=== PATIENT | female | born 1980 | race Caucasian/White ===

== ENCOUNTER 2022-08-13 14:43 | Inpatient (IN) ==
--- NOTE | 2022-08-13 15:06 | Emergency Department Note ---
Impression & Plan Suicide attempt, Suicidal ideation ED Provider Note NAME: MERVIN MORA AGE: 42 SEX: F : 1980 ARRIVES VIA: Walk-In INFORMANT: Patient ED PROVIDER(S): Rodo Lim DO CHIEF COMPLAINT: SI HPI: Patient is a 42-year-old female with past medical history of bipolar that has been off her medications for several weeks. She presents to the ER with a suicide attempt as she tried to cut herself/wrist to kill herself. She denies any auditory or visual hallucinations. She has been eating and drinking. She feels very depressed as she has been unable to see her children since this past October. No belly pain, nausea, vomiting, or diarrhea. No dysuria, urgency, or frequency. No other exacerbating or remitting factors. ROS: See above HPI for pertinent positives & negatives. A total of 10 systems reviewed and were otherwise negative. PAST MEDICAL HISTORY:See Below PAST SURGICAL HISTORY:See Below FAMILY HISTORY:See Below SOCIAL HISTORY:See Below HOME MEDICATIONS:See Below ALLERGIES:See Below VITALS:See Below PHYSICAL EXAMINATION: GENERAL: Sitting up in bed, alert, well appearing, well nourished, no distress, non-toxic EYE EXAM: normal conjunctiva. PERRL and EOM's grossly intact. OROPHARYNX: no exudate, no erythema, lips, buccal mucosa, and tongue normal and mucous membranes are moist NECK: non-tender LUNGS: Clear to auscultation. Normal chest wall mechanics HEART: no murmurs, S1 normal and S2 normal ABDOMEN: abdomen soft, non-tender, normo-active bowel sounds, no masses, no rebound or guarding. UPPER EXTREMITIES: upper extremities are grossly normal. LOWER EXTREMITIES: No pitting edema. NEURO EXAM: Normal sensorium, cranial nerves II-XII grossly intact, normal speech, no gross weakness of arms, no gross weakness of legs. MEDICAL DECISION MAKING: Patient is a 42-year-old female who presents the ER for suicide attempt with cutting her wrist. She has superficial lacerations. She notes that she did and does want to kill her self. Blood work was obtained and showed no significant leukocytosis or anemia. BMP was unremarkable with exception of slightly elevated glucose at 102. LFTs bilirubin was unremarkable. TSH was normal. UA was unremarkable. was negative. Tox was positive for marijuana. Alcohol was negative. COVID was negative. Patient is medically stable. She was signed out Dr. Pederson awaiting placement as she will need inpatient treatment. Patient was given some Ativan as she got anxious as there is a patient next-door that was yelling. Start Time: 1545 Reason: Patient with no pertinent past medical history underwent ED Observation for psychiatric placement and evaluation. Fam Hx: No pertinent family history SocHx: See Below Assessment(s): As described above Summary: As described above Disposition: 08/13/2020 at 1920. Total Time: 4.5hrs Triage Nursing notes reviewed. Limited review of prior medical records performed Vital Signs: reviewed and remarkable for HTN Differential diagnosis: Mood disorder, infection, hypoglycemia, electrolyte abnormalities, cardiac sourc es, intracerebral event, toxicologic, trauma, neurologic, as well as other pathologies. ER treatment provided: See below Diagnostics interpreted by me: ECG: none Laboratory studies: As stated above and show below. Imaging studies: See below Consultation(s): none Procedures: none Critical Care: None Past Med/Surg History Medical History (Updated 08/13/22 @ 19:13 by Rodo Lmi DO) No pertinent family history No pertinent past medical history Surgical History (Updated 07/17/22 @ 01:21 by Josemanuel Amaro) No pertinent past surgical history Social History (Updated 07/17/22 @ 01:21 by Josemanuel Amaro) Smoking Status: Current every day smoker Tobacco Type: E-cigarettes / Vaping Hx Alcohol Use: Yes Hx Substance Use: Yes Prescribed Medications: Opiates Preferred Language: Persian Feels Safe at Home: Yes Home Meds Previous Rx's Medication Instructions Recorded gabapentin 800 mg tablet 800 mg PO TID #30 tabs 07/16/22 Results & Data (ED) Vital Signs Vital Signs - 24 hr 08/13/22 14:46 08/13/22 14:43 Temperature 36.8 C Temperature Source Temporal Artery Scan Pulse Rate 100 H Respiratory Rate 18 16 Respiratory Effort / Characteristics Non-Labored Non-Labored Respiratory Depth Normal Normal Respiratory Pattern Regular Blood Pressure 157/102 H Blood Pressure Mean 120 Pulse Oximetry 99 Oxygen Delivery Method Room Air Sepsis Recent Fever Within 48 Hours No Sepsis New/Unexplained Change in Mental Status No Sepsis Action Taken by Nursing No Action Required Laboratory Data Result diagrams: 08/13/22 15:52 08/13/22 15:52 Lab Results 08/13/22 08/13/2222 Range/Units 15:20 15:20 15:20 WBC (4.8-10.8) K/ul RBC (3.93-5.22) M/uL Hgb (12.0-16.0) g/dl Hct (34.1-44.9) % MCV (80.0-100.0) fL MCH (25.0-34.0) pg MCHC (32.0-36.0) g/dL RDW Std Deviation (36.4-46.3) fL RDW Coeff of Suzi (11.5-14.5) % Plt Count (130-400) K/uL MPV (9.4-12.3) fL Immature Gran % (Auto) % Neut % (Auto) % Lymph % (Auto) % [place] % (Auto) % Eos % (Auto) % Baso % (Auto) % Neut # (Auto) (1.4-6.5) K/uL Lymph # (Auto) (1.2-3.4) K/uL [place] # (Auto) (0.24-0.82) K/uL Eos # (Auto) (0-0.50) K/uL Baso # (Auto) (0-0.2) K/uL Immature Gran # (Auto) (0.00-0.02) K/uL Sodium (136-145) mmol/L Potassium (3.5-5.1) mmol/L Chloride (98-107) mmol/L Carbon Dioxide (21-32) mmol/L Anion Gap (3-11) BUN (6-23) mg/dl Creatinine (0.6-1.2) mg/dl Est Cr Clr Drug Dosing ml/min Est GFR ( Amer) ml/min Est GFR (Non-Af Amer) ml/min BUN/Creatinine Ratio (10-20) Glucose (70-99(Fasting)) mg/dl Calcium (8.5-10.1) mg/dl Total Bilirubin (0.2-1.0) mg/dl AST (13-39) U/L ALT (7-52) U/L Alkaline Phosphatase (34-104) U/L Total Protein (6.0-8.3) gm/dl Albumin (3.4-5.0) gm/dl Globulin (2.5-4.0) gm/dl Albumin/Globulin Ratio (0.9-2) TSH (0.300-4.500) uIu/ml Urine Color Yellow Urine Appearance Clear (Clear) Urine pH 7.0 (4.5-7.5) Ur Specific [place] 1.015 (1.000-1.030) Urine Protein Negative (Negative) Urine Glucose (UA) Negative (Negative) Urine Ketones Negative (Negative) Urine Blood Negative (Negative) Urine Nitrite Negative (Negative) Urine Bilirubin Negative (Negative) Urine Urobilinogen Negative (Negative) Ur Leukocyte Esterase Negative (Negative) Urine Test (Negative) Salicylates (3.0-30) mg/dl Urine Opiates Screen Neg (Neg) Ur Methadone, Qual Neg (Neg) Acetaminophen (10-30) ug/ml Urine Barbiturates Neg (Neg) Ur Phencyclidine (PCP) Neg (Neg) U Amphetamin/Meth Scrn Neg (Neg) MDMA (Ecstasy) Screen Neg (Neg) U Benzodiazepines Scrn Neg (Neg) Ur Cocaine Metabolite Neg (Neg) U Marijuana (THC) Screen Pos H (Neg) Ethyl Alcohol mg/dL (<10.0) mg/dl SARS-CoV-2, RNA, NAAT NEGATIVE (NEGATIVE) 08/13/22 08/13/22 08/13/22 Range/Units 15:20 15:52 15:52 WBC 8.47 (4.8-10.8) K/ul RBC 4.92 (3.93-5.22) M/uL Hgb 14.4 (12.0-16.0) g/dl Hct 42.0 (34.1-44.9) % MCV 85.4 (80.0-100.0) fL MCH 29.3 (25.0-34.0) pg MCHC 34.3 (32.0-36.0) g/dL RDW Std Deviation 38.6 (36.4-46.3) fL RDW Coeff of Suzi 12.6 (11.5-14.5) % Plt Count 260 (130-400) K/uL MPV 9.1 L (9.4-12.3) fL Immature Gran % (Auto) 1.4 % Neut % (Auto) 65.9 % Lymph % (Auto) 18.1 % [place] % (Auto) 12.0 % Eos % (Auto) 2.0 % Baso % (Auto) 0.6 % Neut # (Auto) 5.58 (1.4-6.5) K/uL Lymph # (Auto) 1.53 (1.2-3.4) K/uL [place] # (Auto) 1.02 H (0.24-0.82) K/uL Eos # (Auto) 0.17 (0-0.50) K/uL Baso # (Auto) 0.05 (0-0.2) K/uL Immature Gran # (Auto) 0.12 H (0.00-0.02) K/uL Sodium 137 (136-145) mmol/L Potassium 3.7 (3.5-5.1) mmol/L Chloride 105 (98-107) mmol/L Carbon Dioxide 26 (21-32) mmol/L Anion Gap 6 (3-11) BUN 14 (6-23) mg/dl Creatinine 0.67 (0.6-1.2) mg/dl Est Cr Clr Drug Dosing 128.7 ml/min Est GFR ( Amer) 126.5 ml/min Est GFR (Non-Af Amer) 109.2 ml/min BUN/Creatinine Ratio 20.9 H (10-20) Glucose 120 H (70-99(Fasting)) mg/dl Calcium 9.3 (8.5-10.1) mg/dl Total Bilirubin 0.4 (0.2-1.0) mg/dl AST 13 (13-39) U/L ALT 19 (7-52) U/L Alkaline Phosphatase 82 (34-104) U/L Total Protein 6.9 (6.0-8.3) gm/dl Albumin 3.9 (3.4-5.0) gm/dl Globulin 3.0 (2.5-4.0) gm/dl Albumin/Globulin Ratio 1.3 (0.9-2) TSH (0.300-4.500) uIu/ml Urine Color Urine Appearance (Clear) Urine pH (4.5-7.5) Ur Specific [place] (1.000-1.030) Urine Protein (Negative) Urine Glucose (UA) (Negative) Urine Ketones (Negative) Urine Blood (Negative) Urine Nitrite (Negative) Urine Bilirubin (Negative) Urine Urobilinogen (Negative) Ur Leukocyte Esterase (Negative) Urine Test Negative (Negative) Salicylates (3.0-30) mg/dl Urine Opiates Screen (Neg) Ur Methadone, Qual (Neg) Acetaminophen (10-30) ug/ml Urine Barbiturates (Neg) Ur Phencyclidine (PCP) (Neg) U Amphetamin/Meth Scrn (Neg) MDMA (Ecstasy) Screen (Neg) U Benzodiazepines Scrn (Neg) Ur Cocaine Metabolite (Neg) U Marijuana (THC) Screen (Neg) Ethyl Alcohol mg/dL (<10.0) mg/dl SARS-CoV-2, RNA, NAAT (NEGATIVE) 08/13/22 08/13/22 08/13/22 Range/Units 15:52 15:52 15:52 WBC (4.8-10.8) K/ul RBC (3.93-5.22) M/uL Hgb (12.0-16.0) g/dl Hct (34.1-44.9) % MCV (80.0-100.0) fL MCH (25.0-34.0) pg MCHC (32.0-36.0) g/dL RDW Std Deviation (36.4-46.3) fL RDW Coeff of Suzi (11.5-14.5) % Plt Count (130-400) K/uL MPV (9.4-12.3) fL Immature Gran % (Auto) % Neut % (Auto) % Lymph % (Auto) % [place] % (Auto) % Eos % (Auto) % Baso % (Auto) % Neut # (Auto) (1.4-6.5) K/uL Lymph # (Auto) (1.2-3.4) K/uL [place] # (Auto) (0.24-0.82) K/uL Eos # (Auto) (0-0.50) K/uL Baso # (Auto) (0-0.2) K/uL Immature Gran # (Auto) (0.00-0.02) K/uL Sodium (136-145) mmol/L Potassium (3.5-5.1) mmol/L Chloride (98-107) mmol/L Carbon Dioxide (21-32) mmol/L Anion Gap (3-11) BUN (6-23) mg/dl Creatinine (0.6-1.2) mg/dl Est Cr Clr Drug Dosing ml/min Est GFR ( Amer) ml/min Est GFR (Non-Af Amer) ml/min BUN/Creatinine Ratio (10-20) Glucose (70-99(Fasting)) mg/dl Calcium (8.5-10.1) mg/dl Total Bilirubin (0.2-1.0) mg/dl AST (13-39) U/L ALT (7-52) U/L Alkaline Phosphatase (34-104) U/L Total Protein (6.0-8.3) gm/dl Albumin (3.4-5.0) gm/dl Globulin (2.5-4.0) gm/dl Albumin/Globulin Ratio (0.9-2) TSH 2.895 (0.300-4.500) uIu/ml Urine Color Urine Appearance (Clear) Urine pH (4.5-7.5) Ur Specific [place] (1.000-1.030) Urine Protein (Negative) Urine Glucose (UA) (Negative) Urine Ketones (Negative) Urine Blood (Negative) Urine Nitrite (Negative) Urine Bilirubin (Negative) Urine Urobilinogen (Negative) Ur Leukocyte Esterase (Negative) Urine Test (Negative) Salicylates < 3.0 L (3.0-30) mg/dl Urine Opiates Screen (Neg) Ur Methadone, Qual (Neg) Acetaminophen < 3 L (10-30) ug/ml Urine Barbiturates (Neg) Ur Phencyclidine (PCP) (Neg) U Amphetamin/Meth Scrn (Neg) MDMA (Ecstasy) Screen (Neg) U Benzodiazepines Scrn (Neg) Ur Cocaine Metabolite (Neg) U Marijuana (THC) Screen (Neg) Ethyl Alcohol mg/dL < 10.0 (<10.0) mg/dl SARS-CoV-2, RNA, NAAT (NEGATIVE) Administered Medications Discontinued Medications Lorazepam (Lorazepam 1 Mg Tab) 1 mg SL NOW STA Stop: 08/13/22 18:10 Last Admin: 08/13/22 18:22 Dose: 1 mg Documented By: SR Discharge Plan Visit Data Chief Complaint: Mental Health Evaluation Stated Complaint: ILLNESS ED Provider: Rodo Lim Discharge Problem: Suicide attempt, Suicidal ideation Forms Stand Alone Forms: [facility], Suicide Prevention Resources Referrals Referrals: PCP,NO [Primary Care Provider] -
[2022-08-13 15:46] LABS: Appearance Urine Clear (Clear); Bilirubin Urine Negative (Negative); Blood Urine Negative (Negative); Color Urine Yellow; Glucose Urine UA Negative (Negative); Ketones Urine Negative (Negative); Leukocyte Esterase Urine Negative (Negative); Nitrite Urine Negative (Negative); Protein Urine Negative (Negative); Specific Gravity Urine 1.015 (1.000-1.030); Urobilinogen Urine Negative (Negative)
[2022-08-13 15:52] LABS: Pregnancy Test, Urine Negative (Negative)
[2022-08-13 16:11] LABS: Amphetamines+Metham, Urine Neg (Neg); Barbiturates, Urine Neg (Neg); Benzodiazepine, Urine Neg (Neg); Cocaine, Urine Neg (Neg); MDMA (Ecstacy), Urine Neg (Neg); Methadone, Urine Neg (Neg); Opiate, Urine Neg (Neg); Phencyclidine, Urine Neg (Neg)
[2022-08-13 16:15] LABS: Basophils # (auto) 0.05 K/uL (0-0.2); Basophils % (auto) 0.6 %; Eosinophils # (auto) 0.17 K/uL (0-0.50); Hemoglobin 14.4 g/dl (12.0-16.0); Immature Granulocytes # (auto) 0.12 K/uL (0.00-0.02); Immature Granulocytes % (auto) 1.4 %; Lymphocytes # (auto) 1.53 K/uL (1.2-3.4); Lymphocytes % (auto) 18.1 %; Mean Corpuscular Hemoglobin 29.3 pg (25.0-34.0); Mean Corpuscular Hgb Conc 34.3 g/dL (32.0-36.0); Mean Corpuscular Volume 85.4 fL (80.0-100.0); Mean Platelet Volume 9.1 fL (9.4-12.3); Monocytes # (auto) 1.02 K/uL (0.24-0.82); Neutrophils # (auto) 5.58 K/uL (1.4-6.5); Neutrophils % (auto) 65.9 %; Platelet Count 260 K/uL (130-400); RDW Coefficient of Variation 12.6 % (11.5-14.5); RDW Standard Deviation 38.6 fL (36.4-46.3); Red Blood Count 4.92 M/uL (3.93-5.22); White Blood Count 8.47 K/ul (4.8-10.8)
[2022-08-13 16:33] LABS: Albumin Globulin Ratio 1.3 (0.9-2); Albumin Level 3.9 gm/dl (3.4-5.0); BUN Creatinine Ratio 20.9 (10-20); Bilirubin,Total 0.4 mg/dl (0.2-1.0); Calcium 9.3 mg/dl (8.5-10.1); Creatinine Clr Calc Pharmacy 128.7 ml/min; Est GFR (African American) 126.5 ml/min; Est GFR (Non-African American) 109.2 ml/min; Potassium 3.7 mmol/L (3.5-5.1); Total Protein 6.9 gm/dl (6.0-8.3)
[2022-08-13 16:37] LABS: Acetaminophen < 3 ug/ml (10-30); Salicylate < 3.0 mg/dl (3.0-30)
[2022-08-13] MEDS ORDERED: LORazepam 1 MG TAB SL STA ×2 (18:09→19:18)
[2022-08-13] MEDS ORDERED: DIPHTHERIA/TETANUS/PERTUSSIS 0.5 ML SYR/VIAL IM ONE (19:13)
[2022-08-13] MEDS ORDERED: cloNIDine HCL 0.1 MG TAB PO ONE (20:28)
[2022-08-13] MEDS ORDERED: SODIUM CHLORIDE 0.65% NA SOLN 45 ML (OCEAN) PRN (20:29)
[2022-08-13] MEDS ORDERED: BISMUTH SUBSALICYLATE LIQD 236 ML PO PRN (20:29)
[2022-08-13] MEDS ORDERED: MAGNESIUM HYDROXIDE SUSP 30 ML UDC PO PRN (20:29)
[2022-08-13] MEDS ORDERED: hydrOXYzine HCl 25 MG TAB PO PRN (20:29)
[2022-08-13] MEDS ORDERED: ALUMINUM/MAGNESIUM SUSP 30 ML UDC PO PRN (20:29)
--- NOTE | 2022-08-13 20:31 | Emergency Department Note ---
ED Visit Note The patient was taken in signout from Dr. Lim at change of shift. Please see his note for details of the patient's initial presentation. In brief the patient is a 42-year-old woman presents to the emergency department for evaluation of suicidal ideation with suicide attempt by cutting, which did not require repair with feelings of wanting to kill herself. She is interested in voluntary admission under a 201. The patient was medically cleared and referral was made to [facility] and was accepted. She was given 0.1 mg of clonidine for blood pressure per [facility] request. .
[2022-08-13] MEDS: hydrOXYzine HCl 25 MG TAB PO PRN (21:56)
[2022-08-14] MEDS: ACETAMINOPHEN 325 MG TAB PO PRN ×2 (13:26→13:35)
--- NOTE | 2022-08-14 14:23 | History & Physical ---
Date of Service August 14, 2022 Impression / Recommendations Impression 42 yo female with a history of bipolar disorder--erratic behavior on/off substances and recurrent self harm. Aspects of her history allude to family conflicts and more significant substance abuse that endorsing on initial exam but does seem motivated toward sobriety. Presentation could also be consistent with borderline personality disorder. (1) Bipolar disorder: (2) Polysubstance abuse: Plan The patient was admitted to the [facility] ([facility]) on q15 min checks (behavioral with suicide precautions) for safety. The patient will participate in group, recreational, and milieu therapies and will be offered additional individual and family sessions as clinically appropriate. The patient's recent substance use suggests suggests problematic drinking and other dependence. Brief intervention was offered and accepted. Intervention was greater than 5 min in length and included assessing readiness to quit, recommendation to abstain, and to set a specific goal for aftercare. clothing worker will also assist in anticipating barriers to sobriety and in problem- solving for solutions to those problems while confirming follow up at [facility]. The patient is in action stage with regards to transtheoretical model of change. The patient is advised to decrease consumption due to depressant effects and risk of interaction with prescription medications. Risks/benefits/alternatives reviewed re: Lamictal for mood stabilization. Discussion included but was not limited to slow titration to decrease risks of Albert's Kwabena syndrome. Patient agrees to hold med/notify current prescriber of rash immediately. Will start Lamictal 25 mg daily. She prefers over retrial of lithium or resuming and atypical. She is also requesting retrial of trazodone for sleep and states "I would never OD on that stuff again." Buspar 10 mg TID for anxiety as I do feel that SSRI restart would likely be activating as she presents as mixed depression-hypomania. Inventory Assets Strengths: recovery focussed, help seeking Needs: improve coping skills, abstain from ETOH and other substances. Suicide Risk Level Suicide Risk Level: Moderate (q15 min suicide checks) Risk Factors Assessment : Yes Do You Have Access To A Gun?: No Mental Health Diagnoses: Yes Substance Use Disorders: Yes Previous Attempt: Yes Family History of Suicide: Yes (ATTEMPTS IN FATHER) Previous Psychiatric Hospitalization: Yes Protective Factors Assessment Responsible for Young Children: No (but she wants to reinitiate contact) Employed: No Stable Relationships: Yes Supportive Family: No Psychiatric History Identifying Data MERVIN MORA is a 42-year-old F who currently lives in [place], has a history of bipolar disorder and prior suicide attempts, and was admitted on 08/13/22 20:29 on a 201 voluntary commitment for SI with recent SIB. Chief Complaint "I haven't been stable, I need to get back on my meds." History of Present Illness The patient states she was diagnosed with bipolar disorder at the age of 20 after an OD of trazodone in college (in [place] at the time) and has primarily suffered from depression and self-injurious behavior (cutting) but also over spending and periods of poor impulse control and increase in substance abuse. She minimizes any recent use "other than MJ" this month but reports testing positive because she vaped Delta 8 the day prior to admission and drank a fifth of vodka last week. She related variable mood, irritability, suicidal ideation, and superficial cuts to her forearms essentially since leaving the [facility] and then her stepdown program at rehab ([facility]). She has been admittedly non- compliant with her medications (Zoloft, Seroquel--doses are not in surescripts) since leaving the [facility] 07/02/22. She met her current boyfriend while he was also a patient there and she moved in with him and got engaged last week. Her car and most personal items are in the [place] area as she had been staying with family for support over past year since moving from [place]. She previously resided there with her now ex- who has since relocated to [place] with their 2 children (under 12 yo). She has not seen them since Oct 2021 and "I can't talk to them until I stay clean." The patient states that prior to the [facility] stay she was drinking 1 magnum of wine a day and misusing prescription pills (opiates, benzos). She denies current cravings and is "only interested in outpatient." She stated that her current living environment is supportive of sobriety. She was easily tearful and had difficulty giving clear timeline of specific symptoms but hasn't been sleeping well and is "definitely anxious." She did receive a few doses of Ativan in the ED. Past Psychiatric History Current Psychiatric Diagnosis: Bipolar Outpatient Services: [facility] scheduled Previous Psych Admissions: multiple--starting age 20, numerous during 12 years in [place], most recent 06/2020 Do You Have Access To A Gun?: No History of Previous Suicide Attempt: Yes Describe Attempts in the Past: OD, cutting Past Medication Trials: she has taken trazodone with benefit, lithium, "probably a bunch others", lamictal, buspar (helpful), Seroquel (non compliant), Zoloft (non compliant) Allergies Allergy/AdvReac Type Severity Reaction Status Date / Time sulfamethoxazole Allergy Swelling Verified 08/13/22 21:08 [From Bactrim] of the Eye trimethoprim [From Bactrim] Allergy Swelling Verified 08/13/22 21:08 of the Eye Home Medications Medication Instructions Recorded Confirmed Type No Known Home Medications 08/13/22 08/13/22 History Family History Family Mental Health History Comment: Father- Suicide Attempts, Mother- Depression Alcohol History Hx of Alcohol Use Over the Past 12 Months: Yes AUDIT Total Score: 13 Smoking Use Have You Smoked or Used Tobacco Products in the Last 30 Days: Yes tobacco type: e-cigarettes Smoking Status: Current every day smoker Smoking packs per day: 0 Substance History Hx of Prescription Med Misuse Over the Past 12 Months: No Hx of Over the Counter Med Misuse Over the Past 12 Months: No Hx of Inhalent Misuse Over the Past 12 Months: Yes Hx of Organic Substance Use Over the Past 12 Months: No Hx of Illegal Substances/Street Drug Use Over Past 12 Months: No Problems as a Result of Past Substance Use: Job Loss and Loss of Family Support Problems as a Result of Past Substance Use Comments: loss of job related to alcohol abuse Personal History Living Arrangements: Home Living Arrangements Comments: [place]. Highest Grade Completed: College Highest Grade Completed Comment: BS in Psychology from [employer] Marital Status: Living w/ Signif. Other Number Of Children: 2 Beliefs That Will Affect Care: None Legal Problems Comment: 2000 charged with simple assault, may be off of record Hx Traumatic Life Events: Yes (separation from children, "jumping into relationships") Patient History Medical History No pertinent family history No pertinent past medical history Surgical History No pertinent past surgical history Social History (Updated 07/17/22 @ 01:21 by Josemanuel Amaro) Smoking Status: Current every day smoker Tobacco Type: E-cigarettes / Vaping Hx Alcohol Use: Yes Hx Substance Use: Yes Prescribed Medications: Opiates Preferred Language: Czech Communication Ability: Effective Boring Machine Operator Vertical Required: No Beliefs That Will Affect Care: None Feels Safe at Home: Yes Assistive Devices: None Review of Systems Review of Systems: All systems reviewed & are unremarkable except as noted in HPI & below Physical Exam Psychiatric: Orientation: alert and oriented x 3 Apperance: appropriately dressed and appropriately groomed Eye Contact: good eye contact Motor Behavior: no abnormal motor movements Speech: + abnormal rate/rhythm/volume of speech (hyperverbal) Affect: + depressed affect Mood: + depressed mood and + anxious mood Thought Process: + circumstantial thought process Thought Content: reality based without delusions Suicidal Thoughts: denies suicidal plan and denies suicidal intent; + reports suicidal thoughts Homicidal Thoughts: denies homicidal thoughts Hallucinations: no auditory hallucinations and no visual hallucinations Cognition: language grossly intact; + attention not intact Estimated Intelligence: consistent with education level Insight: + limited insight Judgement: + limited judgement Vital Signs (Past 24 Hours): Last Vital Signs Temp 36.9 C 08/14/22 06:39 Pulse 111 H 08/14/22 06:41 Resp 16 08/14/22 06:39 BP 125/88 08/14/22 06:41 Pulse Ox 99 08/13/22 14:46 O2 Del Method 08/13/22 21:12 Exam Statement: A physical exam was performed in the ED by Dr. Lim for the purposes of medical clearance. I accept that physical as correct and adequate for the purposes of the inpatient physical exam. Results & Data ([facility]) Laboratory Results Laboratory Results - last 24 hr 08/13/22 08/13/22 08/13/22 15:20 15:20 15:20 WBC RBC Hgb Hct MCV MCH MCHC RDW Std Deviation RDW Coeff of Suzi Plt Count MPV Immature Gran % (Auto) Neut % (Auto) Lymph % (Auto) Martin % (Auto) Eos % (Auto) Baso % (Auto) Neut # (Auto) Lymph # (Auto) Martin # (Auto) Eos # (Auto) Baso # (Auto) Immature Gran # (Auto) Sodium Potassium Chloride Carbon Dioxide Anion Gap BUN Creatinine Est Cr Clr Drug Dosing Est GFR ( Amer) Est GFR (Non-Af Amer) BUN/Creatinine Ratio Glucose Calcium Total Bilirubin AST ALT Alkaline Phosphatase Total Protein Albumin Globulin Albumin/Globulin Ratio TSH Urine Color Yellow Urine Appearance Clear Urine pH 7.0 Ur Specific [place] 1.015 Urine Protein Negative Urine Glucose (UA) Negative Urine Ketones Negative Urine Blood Negative Urine Nitrite Negative Urine Bilirubin Negative Urine Urobilinogen Negative Ur Leukocyte Esterase Negative Urine Test Salicylates Urine Opiates Screen Neg Ur Methadone, Qual Neg Acetaminophen Urine Barbiturates Neg Ur Phencyclidine (PCP) Neg U Amphetamin/Meth Scrn Neg MDMA (Ecstasy) Screen Neg U Benzodiazepines Scrn Neg Ur Cocaine Metabolite Neg U Marijuana (THC) Screen Pos H U Marijuana THC Carboxy Drug Screen Comment Ethyl Alcohol mg/dL SARS-CoV-2, RNA, NAAT NEGATIVE 08/13/22 08/13/22 08/13/22 15:20 15:20 15:52 WBC 8.47 RBC 4.92 Hgb 14.4 Hct 42.0 MCV 85.4 MCH 29.3 MCHC 34.3 RDW Std Deviation 38.6 RDW Coeff of Suzi 12.6 Plt Count 260 MPV 9.1 L Immature Gran % (Auto) 1.4 Neut % (Auto) 65.9 Lymph % (Auto) 18.1 Martin % (Auto) 12.0 Eos % (Auto) 2.0 Baso % (Auto) 0.6 Neut # (Auto) 5.58 Lymph # (Auto) 1.53 Martin # (Auto) 1.02 H Eos # (Auto) 0.17 Baso # (Auto) 0.05 Immature Gran # (Auto) 0.12 H Sodium Potassium Chloride Carbon Dioxide Anion Gap BUN Creatinine Est Cr Clr Drug Dosing Est GFR ( Amer) Est GFR (Non-Af Amer) BUN/Creatinine Ratio Glucose Calcium Total Bilirubin AST ALT Alkaline Phosphatase Total Protein Albumin Globulin Albumin/Globulin Ratio TSH Urine Color Urine Appearance Urine pH Ur Specific [place] Urine Protein Urine Glucose (UA) Urine Ketones Urine Blood Urine Nitrite Urine Bilirubin Urine Urobilinogen Ur Leukocyte Esterase Urine Test Negative Salicylates Urine Opiates Screen Ur Methadone, Qual Acetaminophen Urine Barbiturates Ur Phencyclidine (PCP) U Amphetamin/Meth Scrn MDMA (Ecstasy) Screen U Benzodiazepines Scrn Ur Cocaine Metabolite U Marijuana (THC) Screen U Marijuana THC Carboxy Pending Drug Screen Comment Pending Ethyl Alcohol mg/dL SARS-CoV-2, RNA, NAAT 08/13/22 08/13/22 08/13/22 15:52 15:52 15:52 WBC RBC Hgb Hct MCV MCH MCHC RDW Std Deviation RDW Coeff of Suzi Plt Count MPV Immature Gran % (Auto) Neut % (Auto) Lymph % (Auto) Martin % (Auto) Eos % (Auto) Baso % (Auto) Neut # (Auto) Lymph # (Auto) Martin # (Auto) Eos # (Auto) Baso # (Auto) Immature Gran # (Auto) Sodium 137 Potassium 3.7 Chloride 105 Carbon Dioxide 26 Anion Gap 6 BUN 14 Creatinine 0.67 Est Cr Clr Drug Dosing 128.7 Est GFR ( Amer) 126.5 Est GFR (Non-Af Amer) 109.2 BUN/Creatinine Ratio 20.9 H Glucose 120 H Calcium 9.3 Total Bilirubin 0.4 AST 13 ALT 19 Alkaline Phosphatase 82 Total Protein 6.9 Albumin 3.9 Globulin 3.0 Albumin/Globulin Ratio 1.3 TSH 2.895 Urine Color Urine Appearance Urine pH Ur Specific [place] Urine Protein Urine Glucose (UA) Urine Ketones Urine Blood Urine Nitrite Urine Bilirubin Urine Urobilinogen Ur Leukocyte Esterase Urine Test Salicylates < 3.0 L Urine Opiates Screen Ur Methadone, Qual Acetaminophen < 3 L Urine Barbiturates Ur Phencyclidine (PCP) U Amphetamin/Meth Scrn MDMA (Ecstasy) Screen U Benzodiazepines Scrn Ur Cocaine Metabolite U Marijuana (THC) Screen U Marijuana THC Carboxy Drug Screen Comment Ethyl Alcohol mg/dL SARS-CoV-2, RNA, NAAT 08/13/22 15:52 WBC RBC Hgb Hct MCV MCH MCHC RDW Std Deviation RDW Coeff of Suzi Plt Count MPV Immature Gran % (Auto) Neut % (Auto) Lymph % (Auto) Martin % (Auto) Eos % (Auto) Baso % (Auto) Neut # (Auto) Lymph # (Auto) Martin # (Auto) Eos # (Auto) Baso # (Auto) Immature Gran # (Auto) Sodium Potassium Chloride Carbon Dioxide Anion Gap BUN Creatinine Est Cr Clr Drug Dosing Est GFR ( Amer) Est GFR (Non-Af Amer) BUN/Creatinine Ratio Glucose Calcium Total Bilirubin AST ALT Alkaline Phosphatase Total Protein Albumin Globulin Albumin/Globulin Ratio TSH Urine Color Urine Appearance Urine pH Ur Specific [place] Urine Protein Urine Glucose (UA) Urine Ketones Urine Blood Urine Nitrite Urine Bilirubin Urine Urobilinogen Ur Leukocyte Esterase Urine Test Salicylates Urine Opiates Screen Ur Methadone, Qual Acetaminophen Urine Barbiturates Ur Phencyclidine (PCP) U Amphetamin/Meth Scrn MDMA (Ecstasy) Screen U Benzodiazepines Scrn Ur Cocaine Metabolite U Marijuana (THC) Screen U Marijuana THC Carboxy Drug Screen Comment Ethyl Alcohol mg/dL < 10.0 SARS-CoV-2, RNA, NAAT Current Inpatient Medications Current Inpatient Medications: Current Inpatient Medications Acetaminophen (Acetaminophen 325 Mg Tab) 650 mg PO Q4H PRN PRN Reason: Headache or Minor Fever Stop: 09/12/22 20:28 Last Admin: 08/14/22 13:26 Dose: 650 mg Al Hydrox/Mg Hydrox/Simethicone (Aluminum/Magnesium Susp 30 Ml Udc) 30 ml PO Q4H PRN PRN Reason: GI Upset Stop: 09/12/22 20:28 Bismuth Subsalicylate (Bismuth Subsalicylate Liqd 236 Ml) 15 ml PO PRN PRN PRN Reason: Loose Stool Stop: 09/12/22 20:28 Hydroxyzine HCl (Hydroxyzine Hcl 25 Mg Tab) 50 mg PO HSZ PRN PRN Reason: Insomnia Stop: 09/12/22 20:28 Last Admin: 08/13/22 21:56 Dose: 50 mg Hydroxyzine HCl (Hydroxyzine Hcl 25 Mg Tab) 25 mg PO Q4H PRN PRN Reason: Anxiety Stop: 09/12/22 20:28 Magnesium Hydroxide (Magnesium Hydroxide Susp 30 Ml Udc) 30 ml PO DAILY PRN PRN Reason: Constipation Stop: 09/12/22 20:28 Sodium Chloride (Sodium Chloride 0.65% Na Soln 45 Ml ([place])) 1 - 2 sprays NA PRN PRN PRN Reason: Nasal Dryness/Congestion Stop: 09/12/22 20:28
[2022-08-14] MEDS: busPIRone 5 MG TAB PO SCH ×2 (15:01→22:26)
[2022-08-14] MEDS: lamoTRIgine 25 MG TAB PO SCH (15:01)
[2022-08-14] MEDS ORDERED: DIPHTHERIA/TETANUS/PERTUSSIS 0.5 ML SYR/VIAL IM ONE (17:29)
[2022-08-14] MEDS: BACITRACIN OINT 15 GM TUBE EXT SCH (22:25)
[2022-08-14] MEDS: hydrOXYzine HCl 25 MG TAB PO PRN (22:36)
[2022-08-15] MEDS: BACITRACIN OINT 15 GM TUBE EXT SCH (08:29)
[2022-08-15] MEDS: busPIRone 5 MG TAB PO SCH ×2 (08:29→12:49)
[2022-08-15] MEDS: lamoTRIgine 25 MG TAB PO SCH (08:31)
[2022-08-15] MEDS: ACETAMINOPHEN 325 MG TAB PO PRN (08:31)
--- NOTE | 2022-08-15 12:33 | Discharge Summary ---
Date of Service August 15, 2022 History of Present Illness The patient states she was diagnosed with bipolar disorder at the age of 20 after an OD of trazodone in college (in [place] at the time) and has primarily suffered from depression and self-injurious behavior (cutting) but also over spending and periods of poor impulse control and increase in substance abuse. She minimizes any recent use "other than MJ" this month but reports testing positive because she vaped Delta 8 the day prior to admission and drank a fifth of vodka last week. She related variable mood, irritability, suicidal ideation, and superficial cuts to her forearms essentially since leaving the [facility] and then her stepdown program at rehab ([place]). She has been admittedly non- compliant with her medications (Zoloft, Seroquel--doses are not in surescripts) since leaving the [facility] 07/02/22. She met her current boyfriend while he was also a patient there and she moved in with him and got engaged last week. Her car and most personal items are in the [place] area as she had been staying with family for support over past year since moving from [place]. She previously resided there with her now ex- who has since relocated to [place] with their 2 children (under 12 yo). She has not seen them since Oct 2021 and "I can 't talk to them until I stay clean." The patient states that prior to the [facility] stay she was drinking 1 magnum of wine a day and misusing prescription pills (opiates, benzos). She denies current cravings and is "only interested in outpatient." She stated that her current living environment is supportive of sobriety. She was easily tearful and had difficulty giving clear timeline of specific sy mptoms but hasn't been sleeping well and is "definitely anxious." She did receive a few doses of Ativan in the ED. Physical Exam Psychiatric See admission H&P and DOD assessment. Vital Signs (Past 24 Hours) Last Vital Signs Temp 36.6 C 08/15/22 06:47 Pulse 94 H 08/15/22 06:47 Resp 16 08/15/22 06:47 BP 117/79 08/15/22 06:47 Pulse Ox 99 08/13/22 14:46 O2 Del Method 08/13/22 21:12 Principal Diagnosis bipolar disorder Psychiatric Data See daily stay summary. In short, safety was maintained and the patient was cooperative with care. Medication changes included retrial of Buspar and lamictal and they tolerated this well. A family session was held with her fiance and safety plan was completed prior to discharge. Day of Discharge Assessment Today the patient requests discharge having signed a 72 hr notice last night. They note improvement in mood and deny thoughts to harm self or others. Thoughts remain organized and they are improved from admission. There is no evidence of psychosis interfering with her medical decision making. They agree to take mediations as prescribed and keep follow-up appointments. Reviewed that BP/P have been intermittently elevated and again she minimizes any possibility of withdrawal. She views as a factor of anxiety and requests discharge. Reviewed that should f/u with primary care on an outpatient basis and she prefers to initiate that as relies on others for transportation/etc. They are stable for discharge to outpatient level of care. Transition of Care Transition Of Care Record: was reviewed with the patient Advance Directives Advance Directives Information Provided: Yes Advance Directives: No Mental Health Advance Directive: No Advance Directives on File: No Living Will: No Power of Examination Proctor: No Advance Directives Reason:: Declines as Mental Health Visit. Suicide Risk Level Suicide Risk Level Comments: Suicide risk at discharge is deemed low as the patient is no longer requiring 24-hr monitoring, has a safety plan, and is free of suicidal ideation at discharge. Risk Factors Assessment : Yes Do You Have Access To A Gun?: No Mental Health Diagnoses: Yes Substance Use Disorders: Yes Previous Attempt: Yes Family History of Suicide: Yes (attempts (father)) Previous Psychiatric Hospitalization: Yes Protective Factors Assessment Responsible for Young Children: No (but she wants to reinitiate contact) Employed: No Stable Relationships: Yes Supportive Family: No Tobacco Cessation at Discharge Tobacco Cessation Medication Prescribed at Discharge: Offered & Pt Refused Opioid Risk Protocol She has been educated on naloxone nasal spray and she declined kit as "I don't do that anymore." She declines to have discussed with her fiance and agrees to f/u with [facility]. Total Time Total Time Spent: Less Than 30 Minutes Total Time Includes: Examination of the patient, Discharge Planning and Medication Reconciliation Discharge Data Lab Results 08/13/22 08/13/22 08/13/22 15:20 15:20 15:20 WBC RBC Hgb Hct MCV MCH MCHC RDW Std Deviation RDW Coeff of Suzi Plt Count MPV Immature Gran % (Auto) Neut % (Auto) Lymph % (Auto) [place] % (Auto) Eos % (Auto) Baso % (Auto) Neut # (Auto) Lymph # (Auto) [place] # (Auto) Eos # (Auto) Baso # (Auto) Immature Gran # (Auto) Sodium Potassium Chloride Carbon Dioxide Anion Gap BUN Creatinine Est Cr Clr Drug Dosing Est GFR ( Amer) Est GFR (Non-Af Amer) BUN/Creatinine Ratio Glucose Calcium Total Bilirubin AST ALT Alkaline Phosphatase Total Protein Albumin Globulin Albumin/Globulin Ratio TSH Urine Color Yellow Urine Appearance Clear Urine pH 7.0 Ur Specific [place] 1.015 Urine Protein Negative Urine Glucose (UA) Negative Urine Ketones Negative Urine Blood Negative Urine Nitrite Negative Urine Bilirubin Negative Urine Urobilinogen Negative Ur Leukocyte Esterase Negative Urine Test Salicylates Urine Opiates Screen Neg Ur Methadone, Qual Neg Acetaminophen Urine Barbiturates Neg Ur Phencyclidine (PCP) Neg U Amphetamin/Meth Scrn Neg MDMA (Ecstasy) Screen Neg U Benzodiazepines Scrn Neg Ur Cocaine Metabolite Neg U Marijuana (THC) Screen Pos H Ethyl Alcohol mg/dL SARS-CoV-2, RNA, NAAT NEGATIVE 08/13/22 08/13/22 08/13/22 15:20 15:52 15:52 WBC 8.47 RBC 4.92 Hgb 14.4 Hct 42.0 MCV 85.4 MCH 29.3 MCHC 34.3 RDW Std Deviation 38.6 RDW Coeff of Suzi 12.6 Plt Count 260 MPV 9.1 L Immature Gran % (Auto) 1.4 Neut % (Auto) 65.9 Lymph % (Auto) 18.1 [place] % (Auto) 12.0 Eos % (Auto) 2.0 Baso % (Auto) 0.6 Neut # (Auto) 5.58 Lymph # (Auto) 1.53 [place] # (Auto) 1.02 H Eos # (Auto) 0.17 Baso # (Auto) 0.05 Immature Gran # (Auto) 0.12 H Sodium 137 Potassium 3.7 Chloride 105 Carbon Dioxide 26 Anion Gap 6 BUN 14 Creatinine 0.67 Est Cr Clr Drug Dosing 128.7 Est GFR ( Amer) 126.5 Est GFR (Non-Af Amer) 109.2 BUN/Creatinine Ratio 20.9 H Glucose 120 H Calcium 9.3 Total Bilirubin 0.4 AST 13 ALT 19 Alkaline Phosphatase 82 Total Protein 6.9 Albumin 3.9 Globulin 3.0 Albumin/Globulin Ratio 1.3 TSH Urine Color Urine Appearance Urine pH Ur Specific [place] Urine Protein Urine Glucose (UA) Urine Ketones Urine Blood Urine Nitrite Urine Bilirubin Urine Urobilinogen Ur Leukocyte Esterase Urine Test Negative Salicylates Urine Opiates Screen Ur Methadone, Qual Acetaminophen Urine Barbiturates Ur Phencyclidine (PCP) U Amphetamin/Meth Scrn MDMA (Ecstasy) Screen U Benzodiazepines Scrn Ur Cocaine Metabolite U Marijuana (THC) Screen Ethyl Alcohol mg/dL SARS-CoV-2, RNA, NAAT 08/13/22 08/13/22 08/13/22 15:52 15:52 15:52 WBC RBC Hgb Hct MCV MCH MCHC RDW Std Deviation RDW Coeff of Suzi Plt Count MPV Immature Gran % (Auto) Neut % (Auto) Lymph % (Auto) [place] % (Auto) Eos % (Auto) Baso % (Auto) Neut # (Auto) Lymph # (Auto) [place] # (Auto) Eos # (Auto) Baso # (Auto) Immature Gran # (Auto) Sodium Potassium Chloride Carbon Dioxide Anion Gap BUN Creatinine Est Cr Clr Drug Dosing Est GFR ( Amer) Est GFR (Non-Af Amer) BUN/Creatinine Ratio Glucose Calcium Total Bilirubin AST ALT Alkaline Phosphatase Total Protein Albumin Globulin Albumin/Globulin Ratio TSH 2.895 Urine Color Urine Appearance Urine pH Ur Specific [place] Urine Protein Urine Glucose (UA) Urine Ketones Urine Blood Urine Nitrite Urine Bilirubin Urine Urobilinogen Ur Leukocyte Esterase Urine Test Salicylates < 3.0 L Urine Opiates Screen Ur Methadone, Qual Acetaminophen < 3 L Urine Barbiturates Ur Phencyclidine (PCP) U Amphetamin/Meth Scrn MDMA (Ecstasy) Screen U Benzodiazepines Scrn Ur Cocaine Metabolite U Marijuana (THC) Screen Ethyl Alcohol mg/dL < 10.0 SARS-CoV-2, RNA, NAAT Hospital Course (1) Bipolar disorder: (2) Polysubstance abuse: Plan 08/14/22: The patient was admitted to the [facility]) on q15 min checks (behavioral with suicide precautions) for safety. The patient will participate in group, recreational, and milieu therapies and will be offered additional individual and family sessions as clinically appropriate. The patient's recent substance use suggests suggests problematic drinking and other dependence. Brief intervention was offered and accepted. Intervention was greater than 5 min in length and included assessing readiness to quit, recommendation to abstain, and to set a specific goal for aftercare. collision worker will also assist in anticipating barriers to sobriety and in problem- solving for solutions to those problems while confirming follow up at [facility]. The patient is in action stage with regards to transtheoretical model of change. The patient is advised to decrease consumption due to depressant effects and risk of interaction with prescription medications. Risks/benefits/alternatives reviewed re: Lamictal for mood stabilization. Discussion included but was not limited to slow titration to decrease risks of Albert's Kwabena syndrome. Patient agrees to hold med/notify current prescriber of rash immediately. Will start Lamictal 25 mg daily. She prefers over retrial of lithium or resuming and atypical. She is also requesting retrial of trazodone for sleep and states "I would never OD on that stuff again." Buspar 10 mg TID for anxiety as I do feel that SSRI restart would likely be activating as she presents as mixed depression-hypomania. Mental Health & Subst Abuse Tx Psychiatrist Name of Psychiatrist: Myrtle Youngblood Psychiatrist's Date of Appointment with Psychiatrist: 08/20/22 Time of Appointment with Psychiatrist: 10:15 AM Psychiatric Appointment Comment: [address], [place] [address] Therapist Name of Therapist: Yonis Calero Therapist's Date of Therapist Appointment: 08/18/22 Time of Therapist Appointment: 9:00 AM Therapy Appointment Comment: [address], [address], [place] [address] Post Discharge Appointments Smoking Cessation Counseling Tobacco Cessation Medication Prescribed at Discharge: Offered & Pt Refused Contact Information Discharge Discharge Address: [address], [place] [address] Discharge Plan Discharge Items Patient Disposition: Home - Self-Care Reason For Visit: SUICIDAL IDEATION Discharge Diagnosis: bipolar disorder Activity: Resume your previous activity Non-emergency contact: Primary Care Provider Call non-emergency contact if: you have any medication questions and your symptoms worsen Follow-up/Referrals: PCP,ILIA [Primary Care Provider] - Diet: Regular Addtl Attending Provider Instructions: SPECIAL CARE INSTRUCTIONS: 1. Follow through with your scheduled aftercare appointments. If unable to keep an appointment, please call to reschedule. 2. Take your medication only as prescribed. Medication should not be changed or stopped without the approval of your doctor. In the event of worsening symptoms or concerns about side effects, contact your doctor immediately. 3. Utilize new healthy coping skills, anger management skills, and stress management skills learned during your hospitalization. Journal feelings and process them with a support person. Identify stressors or situations that may result in relapse, deterioration or inappropriate behaviors and develop a plan to deal with those issues. 4. If your coping skills are ineffective and you are in crisis, contact your outpatient providers for direction. If unable to reach your providers, please call the [facility] CRISIS LINE AT , go to the [facility] walk-in center at [address], [place], or go to the closest Emergency Room. 5. Avoid alcohol and un-prescribed drugs. 6. You have been provided with the Mental Health Advance Directives Pamphlet for your review. 7. Your condition is stable for discharge to outpatient level of care, but recovery is an ongoing process. Ifthoughts to harm yourself or others return, follow the safety plan developed during your stay. Planning for a safe return home includes securing weapons. Our treatment team recommends weaponsbe removed from the home until your outpatient provider reassesses your progress. In rare cases where the items themselvescannot be removed, guns and ammunitionshould be secured separatelyand keys stored by a reliable personoutside of the home. If you were admitted on an involuntary commitment, the police or other legal authorities may be involved in this process. AFTERCARE APPOINTMENTS: * Please call your insurance company prior to your scheduled appointment to confirm your aftercare providers are covered. Take your insurance information to your appointments. WHO TO CALL AND WHEN: Medical Emergencies: For questions or emergencies related to your hospital stay, please contact the Inpatient Behavioral Health Unit at [phone]. A associate professor of philosophy is on-call 25/05 for the Behavioral Health Unit for emergencies At any time you feel your situation is an emergency, you may also call 911 immediately. Pending Studies at Discharge: No Stand-Alone Forms: [facility], Smoking Cessation Medications and DC Order Prescriptions: New buspirone 5 mg Tablet 10 mg PO TID Qty: 30 0RF lamotrigine [Lamictal] 25 mg Tablet 25 mg PO QAM Qty: 40 0RF Rx Instructions: for 12 more days then increase to 2 tabs daily Discharge Orders: Discharge Order (Routine); Ordered 08/15/22 Ordered By: Olesya Lopez Admission Data Admit Date/Time: 08/13/22 20:29 Attending Provider: Olesya Lopez Admit Provider: Olesya Lopez Primary Care Provider: PCP,NO Other Interventions: Discharge Summary Assessment (RN) Last Done: 08/15/22 12:47 PSY Interdisciplinary Discharge Planning Last Done: 08/15/22 12:54 Coding Level of Care Code 13066 D/C day mgmt > 30 min Diagnoses Bipolar disorder F31.9 Polysubstance abuse F19.10
[2022-08-17 08:12] LABS: Marijuana Quant, GCMS Urine 56 ng/mL (<5)
== END 2022-08-15 13:18 | disposition home or self-care (01) | DRG 885 ==
LOC: ED 14:43 → 3S 20:29
DX: F19.10 Other psychoactive substance abuse, uncomplicated; R45.851 Suicidal ideations; Z88.2 Allergy status to sulfonamides; Z88.1 Allergy status to other antibiotic agents; Z81.8 Family history of other mental and behavioral disorders; F17.290 Nicotine dependence, other tobacco product, uncomplicated; F31.9 Bipolar disorder, unspecified